=== PATIENT | male | born 1945 | race Caucasian/White ===

== ENCOUNTER 2019-02-01 16:45 | Day surgery (SDC) | payer MEDICARE, BC ==
--- NOTE | 2019-02-01 17:44 | EDM.PDOC ---
ED HPI GENERAL MEDICAL PROBLEM - General Chief Complaint: ENT Problem Stated Complaint: CANT SWALLOW Time Seen by Provider: 02/01/19 17:00 Source of Information: Reports: Patient History Limitations: Reports: No Limitations - History of Present Illness INITIAL COMMENTS - FREE TEXT/NARRATIVE: patient states that he was camping with his last night, they had some steak dinner and he was eating too quickly and didn't chew well. Feels like a piece of steak got stuck in his esophagus and he has been unable to swallow since then. They cut short their camping trip and drove 6 hours back today coming from the [facility]. He tried several times on the way back to drink some water and it regurgitated back up. He hasn't been able to take his metoprolol or amlodipine today due to being unable to swallow anything. generally healthy, history of hypertension, no coronary artery disease, no diabetes. Nonsmoker, occasional social alcohol. - Related Data Allergies Allergy/AdvReac Type Severity Reaction Status Date / Time No Known Allergies Allergy Verified 02/01/19 16:58 Home Meds: Home Meds Allopurinol [Zyloprim] 150 mg PO DAILY 06/02/15 [History] Betamethasone Dipropionate [Diprolene 0.05% Oint] 15 gm TOP DAILY PRN 06/02/15 [ History] Clotrimazole [Lotrimin AF 1% Crm] 30 gm .XX DAILY 06/02/15 [History] Metoprolol Succinate [Toprol XL] 75 mg PO DAILY 06/02/15 [History] Fluconazole [Diflucan] 150 mg PO ONETIME #8 tablet 06/04/15 [Rx] amLODIPine [Norvasc] 5 mg PO DAILY 02/01/19 [History] Past Medical History Other HEENT History: wears glasses Cardiovascular History: Reports: Hypertension Musculoskeletal History: Reports: Gout Other Musculoskeletal History: spondylosis Other Immunologic History: Hepatitis A in 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 ED EXAM, GENERAL - Physical Exam Exam: See Below Free Text/Narrative:: general: Alert, very pleasant no acute distress. Throat is without erythema, mucus membranes are moist and there is no tonsillar enlargement or exudate. No foreign body or anything else visible. Neck supple and there is no cervical lymphadenopathy or palpable masses. Heart is regular rate and rhythm. Lungs are clear throughout with no wheezes or crackles. Abdomen positive bowel sounds, soft nondistended nontender. Peripheral pulses +2 in both the upper and lower extremities and there is no lower extremity edema. Course - Vital Signs Text/Narrative:: initial evaluation unremarkable, slightly tachycardic to 105 and slightly hypertensive at 164/88 but has not been able to take his medications today. By history, like he has a foreign body stuck in his esophagus. Case discussed with Dr. Markham, who will come and evaluate patient for an EGD. Assistance very much appreciated. Last Recorded V/S: Last Vital Signs Temp 36.6 C 02/01/19 16:45 Pulse 105 H 02/01/19 16:45 Resp 18 02/01/19 18:00 BP 164/88 H 02/01/19 16:45 Pulse Ox 99 02/01/19 16:45 - Orders/Labs/Meds Orders: Active Orders 24 hr Category Date Time Status EKG Documentation Completion [RC] ASDIRECTED Care 02/01/19 17:38 Active Lactated Ringers [Ringers, Lactated] 1,000 ml Med 02/01/19 17:45 Active IV ASDIRECTED EKG 12 Lead [EK] Routine Ther 02/01/19 17:37 Ordered Medication Orders Lactated Ringer's (Ringers, Lactated) 1,000 mls @ 100 mls/hr IV ASDIRECTED DENZEL Last Admin: 02/01/19 17:50 Dose: 100 mls/hr Meds: Medications Generic Name Dose Route Start Last Admin Trade Name Freq PRN Reason Stop Dose Admin Lactated Ringer's 1,000 mls @ 100 mls/hr 02/01/19 17:45 02/01/19 17:50 Ringers, Lactated IV 100 mls/hr ASDIRECTED [facility] Administration - Re-Assessments/Exams Free Text/Narrative Re-Assessment/Exam: 02/01/19 18:53 to OR for EGD Departure - Departure Time of Disposition: 18:30 Disposition: DC/Tfer to Other 70 Condition: Good Clinical Impression: Foreign body alimentary tract - Discharge Information *PRESCRIPTION DRUG MONITORING PROGRAM REVIEWED*: Not Applicable *COPY OF PRESCRIPTION DRUG MONITORING REPORT IN PATIENT AGATHA: Not Applicable - My Orders Last 24 Hours: My Active Orders 02/01/19 17:37 EKG 12 Lead [EK] Routine 02/01/19 17:38 EKG Documentation Completion [RC] ASDIRECTED 02/01/19 17:45 Lactated Ringers [Ringers, Lactated] 1,000 ml IV ASDIRECTED - Assessment/Plan Last 24 Hours: My Active Orders 02/01/19 17:37 EKG 12 Lead [EK] Routine 02/01/19 17:38 EKG Documentation Completion [RC] ASDIRECTED 02/01/19 17:45 Lactated Ringers [Ringers, Lactated] 1,000 ml IV ASDIRECTED
[2019-02-01] MEDS ORDERED: Lactated Ringers 1,000 ML IV SCH (17:45)
[2019-02-01] MEDS ORDERED: Lidocaine 2% 100 MG/5 ML Syringe IVPUSH ONE (18:19)
[2019-02-01] MEDS ORDERED: Midazolam 1 MG/ML 2 ML SDV IV ONE (18:19)
[2019-02-01] MEDS ORDERED: Propofol 200 MG/20 ML SDV IV ONE (18:19)
--- NOTE | 2019-02-01 18:55 | PCM.OPNOTE ---
- General Post-Op/Procedure Note Date of Surgery/Procedure: 02/01/19 Operative Procedure(s): EGD Findings: Abscence of esophageal foreign body Marked irritation of esophageal lining consistent with recent foreign body Moderate esophageal stricture at GE Jct Pre Op Diagnosis: Foreign body of Esophagus Post-Op Diagnosis: Esophageal stricture with esophageal inflammation Anesthesia Technique: MAC Primary Surgeon: Inocencio Harrington Pathology: none Output, Urine Amount: 0 EBL in mLs: 0 Complications: None Condition: Good
[2019-02-01 19:52] VITALS: BP 154/83; PULSE 80
--- NOTE | 2019-02-01 23:46 | HP ---
ADMISSION DATE: 02/01/2019 HISTORY OF PRESENT ILLNESS: This 73-year-old male was eating a rib eye steak last night while on vacation in the [facility] portion of the [facility], when approximately longterm through, he began noticing that he could not swallow, he was gagging, and subsequent to that was unable to swallow food or keep any water down. He also noted that he was unable to swallow his saliva. He observed this for a time, anticipating that it may resolve, but the symptoms have continued even through today. He has been unable to swallow fluid or saliva as he will gag when he tries to do this. He left his vacation area and came back to his home for management of this problem. Currently, the patient has no pain either in the chest or abdomen. He has not noticed any difficulty breathing or speaking. He did have 1 similar episode approximately a year ago, which was very transient and resolved almost instantaneously. He also notes that he has some difficulty attempting to swallow a very large pill, but other than that he denies any difficulty with dysphagia and also denies any symptoms of heartburn. He only takes a rare Tums for this. CURRENT MEDICATIONS: Include: 1. Metoprolol 75 mg daily. 2. Allopurinol 150 mg daily. 3. Norvasc 5 mg daily. 4. Diflucan. 5. Lotrimin. ALLERGIES: He has no known drug allergies. PAST SURGICAL HISTORY: He denies any history of any previous abdominal surgery. FAMILY HISTORY: Noncontributory. SOCIAL HISTORY: The patient is retired. He is and lives in [place]. He denies smoking. REVIEW OF SYSTEMS: He denies having any recent difficulty with cough, cold, or sore throat symptoms. No chest pain or palpitations. No breathing difficulties. He has noticed slight decrease in muscle mass over the last 2 years, but no major weight loss. He states his bowel function has been satisfactory. He has not noticed any blood in his stool. PHYSICAL EXAMINATION: VITAL SIGNS: Temperature 97.8, pulse 105, blood pressure is 164/88, weight is 152 pounds. GENERAL: The patient is an adult male, who is currently in no acute distress. HEENT: Head is normocephalic. No scleral icterus. No cervical masses or tenderness are identified. The patient's voice is normal. Examination of the oral cavity shows no sign of foreign body or gross mucosal lesion. HEART: Regular without murmur. LUNGS: Clear. ABDOMEN: Soft. Nontender. No palpable mass. No distention. No hepatic or splenic enlargement. EXTREMITIES: No obvious deformity or edema. IMPRESSION: 1. Foreign body (food) causing esophageal obstruction. 2. History of hypertension. RECOMMENDATIONS: With persistence of the patient's symptoms, I advised upper endoscopy with removal of the obstruction to his esophagus. We discussed the proposed endoscopic procedure, reviewed indications, options, and risks, including the possibility of esophageal injury. He appears to understand and agrees to proceed. /[id number] UZAIR/NANCY
--- NOTE | 2019-02-02 00:40 | OR ---
DATE OF OPERATION: 02/01/2019 SURGEON: Inocencio Harrington MD PREOPERATIVE DIAGNOSIS: Esophageal obstruction secondary to foreign body of the esophagus. POSTOPERATIVE DIAGNOSES: 1. Esophageal stricture. 2. Absence of esophageal foreign body. OPERATION PERFORMED: Esophagogastroduodenoscopy. INDICATIONS FOR SURGERY: This 73-year-old male noted development of an esophageal obstruction while eating a ribeye steak several hours ago. Despite a prolonged period of observation, the patient was continued to have symptoms of esophageal obstruction as he was unable to swallow water or even saliva without choking. With persistence of the symptoms, he is felt to likely have a food bolus obstructing his esophagus and is brought for upper endoscopy. FINDINGS: The patient's esophagus is patent with no evidence of an obstructing food bolus. There is a moderate esophageal stricture at the GE junction, although this does appear benign and there is no associated mass with this. The midportion of the esophagus demonstrates circumferential inflammation consistent with a history of foreign body having been lodged in this area for an extended period of time. The esophagus does not show any evidence of perforation. The lining of the patient's stomach and the first and second portions of the duodenum appeared normal without evidence of visible inflammation or mass. PROCEDURE IN DETAIL: The patient was taken to the procedure room. He was given intravenous sedation, and with him in the left lateral decubitus position, the gastroscope was advanced under direct visualization through a mouth guard into the oral cavity. It was carefully advanced down to the oropharynx and the vocal cords were viewed. These appeared to be free of any evidence of foreign body. The scope was slowly advanced through the hypopharynx and down into the upper esophagus. It was carefully advanced through the entire length of the esophagus, and during this examination, no sign of foreign body was noted in the esophagus. The scope was able to be advanced to the GE junction and then easily through the GE junction into the gastric lumen. The scope was advanced through the stomach and down into the duodenum where examination to the second portion was carried out. The duodenum was carefully examined and the scope was withdrawn back into the stomach, where full examination including retroflexed examination of the fundus was performed. Again, no foreign body or mass in the stomach or at the GE junction was identified. The GE junction and esophagus were then carefully examined as the scope was withdrawn. Even though there was a stricture noted at the GE junction, dilation was not performed today because of the history of likely prolonged foreign body in the area and the grossly visible inflammation, which would have increased the risk of any dilation procedure at this time. The scope was then withdrawn and removed. The patient was then taken from the procedure room in satisfactory condition. ESTIMATED BLOOD LOSS: 0. COMPLICATIONS: None. PROGNOSIS: Good. /[id number] UZAIR/NANCY BELCHER
== END 2019-02-01 19:40 | disposition home or self-care (01) ==
LOC: FB.ED 16:45 → FB.SDS 18:18
PROVIDERS: ATTEND Surgery
DX: T18.128A Food in esophagus causing other injury, initial encounter (principal); I10 Essential (primary) hypertension; M10.9 Gout, unspecified; Z79.899 Other long term (current) drug therapy
CPT/HCPCS: 43235; 93005; 96360; 99284; J2001; J2250; J2704; J7120; 00731-QZ

== ENCOUNTER 2021-02-16 16:53 | Emergency (ER) | payer MEDICARE, BC ==
[2021-02-16 17:54] VITALS: BP 138/74; PULSE 74
--- NOTE | 2021-02-16 18:12 | EDM.PDOC ---
ED HPI GENERAL MEDICAL PROBLEM - General Chief Complaint: General Stated Complaint: POSSIBLY BIT BY BAT Time Seen by Provider: 02/16/21 17:00 Source of Information: Reports: Patient History Limitations: Reports: No Limitations - History of Present Illness INITIAL COMMENTS - FREE TEXT/NARRATIVE: c/o bat exposure pt's awoke at 5a, went to bathroom, on returning to bedroom a bat flew in one door to the bedroom and out the other door, pt got up and opened doors and windows and the bat could not be found which they think exited the house lives in an older house, bats moved in one year ago and they have seen bats in various rooms on the first and second floor as well as in the basement there has been no abnormal behavior of bats and no bat has lingered in the bedroom they are planning on calling a bat home health lpn although they have not done so previously they called [facility] who told them to come to the ED - Related Data Allergies Allergy/AdvReac Type Severity Reaction Status Date / Time No Known Allergies Allergy Verified 02/01/19 16:58 Home Meds: Home Meds Betamethasone Dipropionate [Diprolene 0.05% Oint] 15 gm TOP DAILY PRN 06/02/15 [History] Clotrimazole [Lotrimin AF 1% Crm] 30 gm .XX DAILY 06/02/15 [History] Metoprolol Succinate [Toprol XL] 75 mg PO DAILY 06/02/15 [History] allopurinoL [Zyloprim] 150 mg PO DAILY 06/02/15 [History] Fluconazole [Diflucan] 150 mg PO ONETIME #8 tablet 06/04/15 [Rx] amLODIPine [Norvasc] 5 mg PO DAILY 02/01/19 [History] Past Medical History Other HEENT History: wears glasses Cardiovascular History: Reports: Hypertension Musculoskeletal History: Reports: Gout Other Musculoskeletal History: spondylosis Other Immunologic History: Hepatitis A in 1972 but is cured from it Dermatologic History: Reports: Cellulitis, Melanoma Other Dermatologic History: eczema hands and feet Social & Family History - Family History Family Medical History: No Pertinent Family History - Tobacco Use Tobacco Use Status *Q: Never Tobacco User Second Hand Smoke Exposure: No - Caffeine Use Caffeine Use: Reports: Coffee - Recreational Drug Use Recreational Drug Use: No - Living Situation & Occupation Living situation: Reports: Occupation: Retired (rehab counselor) ED ROS GENERAL - Review of Systems Review Of Systems: See Below Constitutional: Reports: No Symptoms HEENT: Reports: No Symptoms Respiratory: Reports: No Symptoms Cardiovascular: Reports: No Symptoms Endocrine: Reports: No Symptoms GI/Abdominal: Reports: No Symptoms : Reports: No Symptoms Musculoskeletal: Reports: No Symptoms Skin: Reports: No Symptoms Neurological: Reports: No Symptoms Psychiatric: Reports: No Symptoms Hematologic/Lymphatic: Reports: No Symptoms Immunologic: Reports: No Symptoms ED EXAM, GENERAL - Physical Exam Exam: See Below Exam Limited By: No Limitations General Appearance: Alert, WD/WN, No Apparent Distress Skin Exam: Other (skin was carefully examined (other than groin and breasts), there are no breaks in skin other than a 2 x 2 mm area of excoriation of a small eczematous nodule on the back, the R anterior thigh has a 15 x 40 cm area of multiple red nodular papules d/t eczema, skin in general is dry) Course - Vital Signs Last Recorded V/S: Last Vital Signs Temp 37.3 C 02/16/21 17:08 Pulse 74 02/16/21 17:08 Resp 16 02/16/21 17:08 BP 138/74 02/16/21 17:08 Pulse Ox 96 02/16/21 17:08 - Re-Assessments/Exams Free Text/Narrative Re-Assessment/Exam: 02/16/21 18:13 no prolonged exposure to bat, nl behavior of bat, known environment of bats who live in the house, intact skin Departure - Departure Time of Disposition: 18:06 Disposition: Home, Self-Care 01 Condition: Good Clinical Impression: Exposure to bat without known bite - Discharge Information *PRESCRIPTION DRUG MONITORING PROGRAM REVIEWED*: Not Applicable *COPY OF PRESCRIPTION DRUG MONITORING REPORT IN PATIENT AGATHA: Not Applicable Instructions: Rabies Referrals: Gilberto Davenport MD [Primary Care Provider] - Additional Instructions: Call the [place] [facility] at [phone] for additional information on bat exposure and need for rabies vaccination. [facility] typically recommends rabies vaccination in higher risk exposures, which did not occur here. Call the Emergency Department tomorrow if there are additional questions. Sepsis Event Note (ED) - Evaluation Sepsis Screening Result: No Definite Risk - Focused Exam Vital Signs: Vital Signs Temp Pulse Resp BP Pulse Ox 02/16/21 17:08 37.3 C 74 16 138/74 96
== END 2021-02-16 18:15 | disposition home or self-care (01) ==
LOC: FB.ED 16:53
DX: L30.9 Dermatitis, unspecified (principal); Z20.3 Contact with and (suspected) exposure to rabies; M10.9 Gout, unspecified; I10 Essential (primary) hypertension; Z79.899 Other long term (current) drug therapy
CPT/HCPCS: 99282